=== PATIENT | male | born 2000 | race African-American/Black ===

== ENCOUNTER 2018-09-10 17:54 | Emergency (ER) | payer SELFPAY ==
--- NOTE | 2018-09-10 18:08 | PDOC ---
Rapid Medical Evaluation Time Seen by Provider: 09/10/18 18:06 Medical Evaluation: Allergies Allergy/AdvReac Type Severity Reaction Status Date / Time No Known Allergies Allergy Verified 12/25/14 16:53 09/10/18 18:06 I have performed a brief in-person evaluation of this patient. The patient presents with a chief complaint of: left flank pain x2 weeks. Also with n/v and ?wt loss over months Pertinent physical exam findings: No CVAT. I have ordered the following: labs, urine The patient will proceed to the ED for further evaluation. Discharge Disposition - Diagnosis Flank pain - Referrals - Patient Instructions - Post Discharge Activity
[2018-09-10 18:16] VITALS: BMI 19.4
[2018-09-10 18:37] LABS: BASO % 0.2 % (0-2.0); EOS % 0.8 % (0-4.5); HEMATOCRIT 39.8 % (35.4-49); HEMOGLOBIN 13.6 GM/dL (11.7-16.9); LYMPH % 28.7 % (8-40); MCHC 34.3 g/dl (32.0-35.9); MEAN CELL VOLUME 99.3 fl (80-96); MEAN PLT VOLUME 7.2 fl (7.5-11.1); MONO % 10.1 % (3.8-10.2); NEUT % 60.2 % (42.8-82.8); PLATELET COUNT 219 K/MM3 (134-434); RDW 12.8 % (11.9-15.9); WHITE BLOOD COUNT 5.9 K/mm3 (4.0-10.0)
[2018-09-10 19:23] LABS: ALBUMIN 4.4 g/dl (3.4-5.0); ALK PHOS 86 U/L (45-117); ANION GAP 6 MMOL/L (8-16); BILIRUBIN,TOTAL 0.6 mg/dL (0.2-1); BLOOD UREA NITROGEN 13 mg/dL (7-18); CALCIUM 8.8 mg/dL (8.5-10.1); CHLORIDE 104 mmol/L (98-107); CO2 28 mmol/L (21-32); CREATININE 0.9 mg/dL (0.55-1.3); GLUCOSE,RANDOM 120 mg/dL (74-106); POTASSIUM 3.4 mmol/L (3.5-5.1); SGOT/AST 19 U/L (15-37); SGPT/ALT 18 U/L (13-61); SODIUM 138 mmol/L (136-145); TOT PROT 7.6 g/dl (6.4-8.2)
--- NOTE | 2018-09-10 20:15 | PDOC ---
*Physical Exam - Vital Signs Last Vital Signs Temp Pulse Resp BP Pulse Ox 97.5 F L 78 18 136/81 99 09/10/18 18:14 09/10/18 18:14 09/10/18 18:14 09/10/18 18:14 09/10/18 18:14 ED Treatment Course - LABORATORY CBC & Chemistry Diagram: 09/10/18 18:21 09/10/18 18:21 - ADDITIONAL ORDERS Additional order review: Laboratory Results 09/10/18 18:21 Sodium 138 Potassium 3.4 L Chloride 104 Carbon Dioxide 28 Anion Gap 6 L BUN 13 Creatinine 0.9 Creat Clearance w eGFR > 60 Random Glucose 120 H Calcium 8.8 Total Bilirubin 0.6 AST 19 ALT 18 Alkaline Phosphatase 86 Total Protein 7.6 Albumin 4.4 09/10/18 18:21 RBC 4.00 MCV 99.3 H MCHC 34.3 RDW 12.8 MPV 7.2 L Neutrophils % 60.2 Lymphocytes % 28.7 Monocytes % 10.1 Eosinophils % 0.8 Basophils % 0.2 Medical Decision Making - Medical Decision Making 09/10/18 20:14 Patient seen by the advanced practice provider under my direct supervision. Ancillary testing reviewed as necessary. I agree with plan as outlined by the advanced practice provider. *DC/Admit/Observation/Transfer Diagnosis at time of Disposition: Nausea - Discharge Dispostion Disposition: HOME Condition at time of disposition: Stable - Referrals - Patient Instructions Printed Discharge Instructions: DI for Celiac Disease Additional Instructions: Thank you for choosing [facility]. It was a pleasure taking care of you. Would recommend you follow-up with a GI doctor to get further evaluation of your symptoms. Return to the Emergency Department if your symptoms worsen or persist or have other concerning symptoms. - Post Discharge Activity Forms/Work/School Notes: Back to Work
--- NOTE | 2018-09-10 20:29 | PDOC ---
History of Present Illness - General Chief Complaint: Pain Stated Complaint: PAIN Time Seen by Provider: 09/10/18 18:06 History Source: Patient, Parent(s) Exam Limitations: No Limitations Past History - Past Medical History Allergies/Adverse Reactions: Allergies Allergy/AdvReac Type Severity Reaction Status Date / Time No Known Allergies Allergy Verified 12/25/14 16:53 Home Medications: Ambulatory Orders NK [No Known Home Medication] 09/10/18 COPD: No - Immunization History Immunization Up to Date: Yes - Suicide/Smoking/Psychosocial Hx Smoking Status: No Smoking History: Never smoked Number of Cigarettes Smoked Daily: 0 Hx Alcohol Use: No Drug/Substance Use Hx: No Substance Use Type: None *Physical Exam - Vital Signs Last Vital Signs Temp Pulse Resp BP Pulse Ox 97.5 F L 78 18 136/81 99 09/10/18 18:14 09/10/18 18:14 09/10/18 18:14 09/10/18 18:14 09/10/18 18:14 - Physical Exam General Appearance: No: Apparent Distress Respiratory/Chest: positive: Lungs Clear, Normal Breath Sounds. negative: Respiratory Distress Cardiovascular: positive: Regular Rhythm, Regular Rate, S1, S2. negative: Murmur Gastrointestinal/Abdominal: positive: Normal Bowel Sounds, Soft. negative: Tender, Distended, Guarding, Rebound Musculoskeletal: negative: CVA Tenderness Integumentary: positive: Normal Color Neurologic: positive: Alert, Normal Mood/Affect Moderate Sedation - Procedure Monitoring Vital Signs: Procedure Monitoring Vital Signs Temperature 97.5 F L 09/10/18 18:14 Pulse Rate 78 09/10/18 18:14 Respiratory Rate 18 09/10/18 18:14 Blood Pressure 136/81 09/10/18 18:14 O2 Sat by Pulse Oximetry (%) 99 09/10/18 18:14 ED Treatment Course - LABORATORY CBC & Chemistry Diagram: 09/10/18 18:21 09/10/18 18:21 - ADDITIONAL ORDERS Additional order review: Laboratory Results 09/10/18 18:21 Sodium 138 Potassium 3.4 L Chloride 104 Carbon Dioxide 28 Anion Gap 6 L BUN 13 Creatinine 0.9 Creat Clearance w eGFR > 60 Random Glucose 120 H Calcium 8.8 Total Bilirubin 0.6 AST 19 ALT 18 Alkaline Phosphatase 86 Total Protein 7.6 Albumin 4.4 09/10/18 18:21 RBC 4.00 MCV 99.3 H MCHC 34.3 RDW 12.8 MPV 7.2 L Neutrophils % 60.2 Lymphocytes % 28.7 Monocytes % 10.1 Eosinophils % 0.8 Basophils % 0.2 Medical Decision Making - Medical Decision Making 17 y/o M with no sig pmh presents with feeling nausea and occasional fatigue after eating food over the course of several years, worsening over the past 4 months. Mentions having 15 lb weight loss over past 3 months. Mother mentions she was having similar sxs (except for the weight loss) and was recently diagnosed with celiac disease 2 weeks ago. She mentions he has not not seen a PCP yet. Per patient, he had some gluten free food today and felt fine and had no symptoms. Denies hemoptysis, sob, cp, abd pain, n/v/d/ urinary complaints, flank pain. PE unremarkable Labs unremarkable other than mild hypokalemia of 3.4 Advised patient to f/u with PCP Stable for dc 09/10/18 20:24 *DC/Admit/Observation/Transfer Diagnosis at time of Disposition: Nausea - Discharge Dispostion Disposition: HOME Condition at time of disposition: Stable Decision to Admit order: No - Referrals - Patient Instructions Printed Discharge Instructions: DI for Celiac Disease Additional Instructions: Thank you for choosing [facility]. It was a pleasure taking care of you. Would recommend you follow-up with a GI doctor to get further evaluation of your symptoms. Return to the Emergency Department if your symptoms worsen or persist or have other concerning symptoms. - Post Discharge Activity
[2018-09-10 20:38] VITALS: BP 132/78; PULSE 80; TEMP 97.8
== END 2018-09-10 20:38 | disposition home or self-care (01) ==
LOC: JER 17:54
DX: R11.0 Nausea (principal)
CPT/HCPCS: 36415; 80053; 85025; 87389; 99283-25